=== PATIENT | female | born 1960 | race African-American/Black ===

== ENCOUNTER 2018-12-19 20:46 | Emergency (ER) | payer BC ==
[~2018-12-19] VITALS: Ht 165.1 cm; Wt 117.0 kg
[~2018-12-19 20:46] MED LIST: FERR SULFATE325 MG PO; FLEXERIL OR; FLEXERIL PO; NAPROSYN500 MG OR; NAPROSYN500 MG PO; NO HOME MEDS; NORVASC PO; TRAMADOL HCL50 MG OR
[2018-12-19] MEDS ORDERED: WATER PILL PO (21:03)
[2018-12-19 22:12] LABS: URINE BILIRUBIN - DIPSTICK NEGATIVE (NEGATIVE); URINE BLOOD DIPSTICK TRACE-INTACT (NEGATIVE); URINE COLOR YELLOW; URINE GLUCOSE - DIPSTICK NEGATIVE (NEGATIVE); URINE KETONE NEGATIVE (NEGATIVE); URINE NITRITE - DIPSTICK NEGATIVE (Negative); URINE PROTEIN - DIPSTICK NEGATIVE (NEG-TRACE); URINE SPECIFIC GRAVITY 1.025; URINE UROBILINOGEN - DIPSTICK 0.2 E.U./dL (0.2)
[2018-12-19 22:13] LABS: IMMATURE GRANULOCYTES 0.4 % (0.0-5.0); MEAN CORPUSCULAR HGB 25.6 pG CALC (26.0-32.0); MEAN CORPUSCULAR HGB CONC 30.8 g/L CALC (32.0-36.0); NEUT# 5.11 thou/uL (2.00-7.15); RED BLOOD COUNT 4.49 mill/uL (4.20-5.60); RED CELL DISTRI WIDTH 15.9 % (11.5-15.5); URINE LEUK ESTERASE SMALL (NEGATIVE)
[2018-12-19 22:15] LABS: HEMATOCRIT 37.3 % (37.0-47.0); HEMOGLOBIN 11.5 g/dl (12.0-16.0); MEAN CELL VOLUME 83.1 fL CALC (80.0-100.0)
[2018-12-19 22:24] LABS: URINE MUCUS FEW hpf (NONE-FEW); URINE SQUAMOUS EPITHELIAL CELL FEW EPI/hpf (0-FEW)
[2018-12-19 22:30] LABS: ALBUMIN 4.3 g/dL (3.2-5.0); ALKALINE PHOSPHATASE 102 u/l (38-126); ANION GAP 14 (6-22 (CALC)); BILIRUBIN, TOTAL 0.5 mg/dL (0.0-1.4); BUN 11 mg/dL (7-17); BUN/CREATININE RATIO 12 (12-20 (CALC)); CARBON DIOXIDE 26 mmol/l (22-30); CHLORIDE 106 mmol/l (95-108); CREATININE 0.9 mg/dL (0.5-1.0); GFR > 60 ML/MIN (>=60 (CALC)); GFR FOR AFR.AMER. > 60 ML/MIN (>=60 (CALC)); POTASSIUM 3.9 mmol/l (3.5-5.1); SGOT/AST 21 u/l (14-36); SODIUM 141 mmol/l (137-146); TOTAL PROTEIN 8.6 g/dL (6.3-8.2)
[2018-12-19 22:42] LABS: MYOGLOBIN 35 ng/mL (0 - 62)
[2018-12-20] MEDS ORDERED: CEPHALEXIN500 M1 PO (00:40)
[2018-12-20] MEDS ORDERED: FLEXERIL PO (00:40)
[2018-12-20] MEDS ORDERED: NAPROSYN500 MG PO (00:40)
[2018-12-20 01:03] VITALS: BP 114/63
== END 2018-12-20 01:13 | disposition home or self-care (01) | DRG 556 ==
LOC: ED 20:46
PROVIDERS: Emergency Medicine
DX: M79.18 Myalgia, other site (principal); N39.0 Urinary tract infection, site not specified; R07.81 Pleurodynia; I51.7 Cardiomegaly; K44.9 Diaphragmatic hernia without obstruction or gangrene
CPT/HCPCS: Q9967

== ENCOUNTER 2023-01-27 19:08 | Emergency (ER) | payer BC ==
[~2023-01-27] VITALS: Ht 165.1 cm; Wt 118.0 kg
[~2023-01-27 19:08] MED LIST changes: +CEPHALEXIN500 M1 PO; +WATER PILL PO
[2023-01-27 19:17] VITALS: BP 115/70
[2023-01-27 19:57] LABS: URINE COLOR YELLOW; URINE GLUCOSE - DIPSTICK NEGATIVE (NEGATIVE); URINE KETONE Negative (NEGATIVE); URINE PROTEIN - DIPSTICK 30 mg/dL (NEG-TRACE); URINE SPECIFIC GRAVITY >=1.030
[2023-01-27 19:58] LABS: URINE BLOOD DIPSTICK NEGATIVE (NEGATIVE); URINE LEUK ESTERASE NEGATIVE (NEGATIVE); URINE NITRITE - DIPSTICK NEGATIVE (Negative); URINE RBC 0-2 RBC/hpf (0-5); URINE SQUAMOUS EPITHELIAL CELL FEW EPI/hpf (0-FEW); URINE WBC 0-2 WBC/hpf (0-5)
[2023-01-27] MEDS ORDERED: ULTRAM50 MG PO (21:40)
[2023-01-27] MEDS ORDERED: CYCLOBENZAPRINE10 MG PO (21:40)
[2023-01-27 21:45] VITALS: BP 115/70
== END 2023-01-27 21:50 | disposition home or self-care (01) | DRG 552 ==
LOC: ED 19:08
PROVIDERS: Emergency Medicine
DX: M47.816 Spondylosis without myelopathy or radiculopathy, lumbar region (principal); S83.91XA Sprain of unspecified site of right knee, initial encounter; I10 Essential (primary) hypertension; X50.0XXA Overexertion from strenuous movement or load, initial encounter